=== PATIENT | male | born 2000 | race Caucasian/White ===

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

== ENCOUNTER → 2021-04-18 | Outpatient (CLI) | payer MEDICAID, OTHER ==
--- NOTE | 2021-04-19 23:57 | RAD ---
US ABDOMEN LIMITED History: Reason: ABSCESS, UMBILICAL. URACHAL CYST. / Spl. Instructions: / History: Comparison: None. Technique: Transabdominal ultrasound images are obtained of the anterior abdominal wall Findings: Ultrasound evaluation of the umbilicus. No fluid collection or solid mass. No evidence of hernia iden tified on ultrasound. IMPRESSION: 1. No ultrasound evidence of abnormality within the region of the umbilicus. Electronically signed by: Stefano Ohara DO (04/19/2021 11:55 PM) [facility]
--- NOTE | 2021-04-19 23:59 | RAD ---
US EXT NON VASC LEFT History:Reason: LT GROIN LUMP / Spl. Instructions: / History: Comparison: None Technique: Sonographic examination of the left inguinal region. Findings: Mildly prominent left inguinal lymph node corresponding with patient's palpable abnormality measures 0.9 x 0.5 cm. Additional smaller left inguinal lymph nodes. Impression: 1. Mildly prominent left inguinal lymph node corresponding with patient's palpable abnormality, pote ntially reactive. Recommend clinical follow-up and imaging follow-up if persistent clinical concern. Electronically signed by: Stefano Ohara DO (04/19/2021 11:56 PM) [facility], [facility]
== END ==
LOC: US 10:30
PROVIDERS: ATTEND Internal Medicine
DX: Q64.4 Malformation of urachus (principal); L02.216 Cutaneous abscess of umbilicus; R19.09 Other intra-abdominal and pelvic swelling, mass and lump
CPT/HCPCS: 76705; 76881

== ENCOUNTER → 2021-06-20 | Outpatient (CLI) | payer OTHER ==
--- NOTE | 2021-06-20 15:13 | RAD ---
INDICATION: Reason: Right Neck Lymphadenopathy; Right neck lump / Spl. Instructions: / History: COMPARISON: None. IMPRESSION: Focused ultrasound images were obtained of the right side of the neck at the region of concern. At the region of lump in the right side of the neck there is a 54 x 23 mm masslike structure identifi ed with increased vascularity. This appears predominantly solid and hypoechoic with some echogenic co mponents. This could be secondary to an enlarged lymph node in the region which could be reactive or neoplastic in nature and follow-up will be needed to ensure this appropriately decreases to exclude neoplasm. E nlarged lymph node would be favored over a primary soft tissue mass. Electronically signed by: Phong Craig MD (06/20/2021 3:11 PM) [id number]
== END ==
LOC: US 10:32
PROVIDERS: ATTEND Physician Assistant
DX: R22.1 Localized swelling, mass and lump, neck (principal); I88.9 Nonspecific lymphadenitis, unspecified
CPT/HCPCS: 76536